=== PATIENT | female | born 1945 | race Caucasian/White ===

== ENCOUNTER 2017-09-04 09:44 | Emergency (ER) | payer OTHER ==
[2017-09-04] MEDS ORDERED: FLUCONAZOLE 100 MG TAB ONE ×2 (12:49→12:50)
== END 2017-09-04 12:56 | disposition home or self-care (01) ==
LOC: EDH 09:44
DX: N76.0 Acute vaginitis (principal); Z88.2 Allergy status to sulfonamides
CPT/HCPCS: 87210; 87486; 87797